=== PATIENT | female | born 1970 | race Caucasian/White ===

== ENCOUNTER → 2016-06-18 | Outpatient (CLI) | payer OTHER | LOC: FIMAGING 14:18 | PROVIDERS: ATTEND Obstetrics & Gynecology | DX: O46.8X1 Other antepartum hemorrhage, first trimester (principal); O99.281 Endocrine, nutritional and metabolic diseases complicating pregnancy, first trimester; O09.521 Supervision of elderly multigravida, first trimester; Z3A.01 Less than 8 weeks gestation of pregnancy; E03.9 Hypothyroidism, unspecified ==

== ENCOUNTER → 2016-06-25 | Outpatient (CLI) | payer OTHER | LOC: FIMAGING 13:39 | PROVIDERS: ATTEND Obstetrics & Gynecology | DX: O09.522 Supervision of elderly multigravida, second trimester (principal); O20.8 Other hemorrhage in early pregnancy; Z3A.21 21 weeks gestation of pregnancy ==

== ENCOUNTER → 2016-06-30 | Outpatient (CLI) | payer OTHER | LOC: FIMAGING 13:42 | PROVIDERS: ATTEND Obstetrics & Gynecology | DX: O09.522 Supervision of elderly multigravida, second trimester (principal); Z3A.21 21 weeks gestation of pregnancy ==

== ENCOUNTER → 2016-08-03 | Outpatient (CLI) | payer OTHER | LOC: FIMAGING 13:43 | PROVIDERS: ATTEND Obstetrics & Gynecology | DX: O36.62X0 Maternal care for excessive fetal growth, second trimester, not applicable or unspecified (principal); O09.812 Supervision of pregnancy resulting from assisted reproductive technology, second trimester; O09.522 Supervision of elderly multigravida, second trimester; Z3A.26 26 weeks gestation of pregnancy ==

== ENCOUNTER → 2016-09-14 | Outpatient (CLI) | payer OTHER | LOC: FIMAGING 13:27 | PROVIDERS: ATTEND Obstetrics & Gynecology | DX: O09.523 Supervision of elderly multigravida, third trimester (principal); O09.813 Supervision of pregnancy resulting from assisted reproductive technology, third trimester; Z3A.32 32 weeks gestation of pregnancy ==

== ENCOUNTER → 2016-10-12 | Outpatient (CLI) | payer OTHER | LOC: FIMAGING 14:08 | PROVIDERS: ATTEND Obstetrics & Gynecology | DX: O09.523 Supervision of elderly multigravida, third trimester (principal); Z3A.36 36 weeks gestation of pregnancy ==

== ENCOUNTER 2016-11-02 03:00 | Inpatient (IN) | payer OTHER ==
[2016-11-02] MEDS ORDERED: OXYTOCIN/RINGERS LACTATE 1,000 ML IV PRN (03:31)
[2016-11-02] MEDS ORDERED: EPSOM SALT 454 GM TP PRN (03:31)
[2016-11-02] MEDS ORDERED: LR 1,000 ML IV PRN (03:31)
[2016-11-02] MEDS ORDERED: OLIVE OIL 118 ML BTL MISC PRN (03:31)
[2016-11-02] MEDS ORDERED: TERBUTALINE SULFATE 1 MG/ML VIAL IV PRN (03:31)
[2016-11-02] MEDS ORDERED: NALOXONE HCL 0.4 MG/ML INJ IVP PRN (04:03)
[2016-11-02] MEDS ORDERED: METOCLOPRAMIDE 10 MG/2 ML VIAL IVP PRN (04:03)
[2016-11-02] MEDS ORDERED: ONDANSETRON 4 MG/2 ML VIAL IVP PRN (04:03)
[2016-11-02] MEDS ORDERED: PHENYLEPHRINE HCL 100 MCG/ML SYR IVP PRN (04:03)
--- NOTE | 2016-11-02 04:03 | PREANESOB ---
Obstetric Pre-Anesthesia Info - General Info : 4 Para: 1 - Info Status: Full Term, Postmature (planned induction for later today) - Labor Status Cervical Dilation per last OB SVE: 4 PIH: No Magnesium Sulfate in Use: No Indications for Labor Analgesia: Pain Control Labor Epidural: Proposed Anesthesia ROS: hypothyroid Allergies/Adverse Reactions: Allergy/AdvReac Type Severity Reaction Status Date / Time No Known Allergies Allergy Verified 08/11/12 17:06 Home Medications: Medication Instructions Recorded [place]-3 Fatty Acids [Fish Oil 1000 8,000 mg PO DAILY 02/29/12 mg (*)] Dha 1 tab PO DAILY 11/02/16 FOLIC ACID 1 tab PO DAILY 11/02/16 1 tab PO DAILY 11/02/16 Synthroid 50 mcg (*) 1 tab PO DAILY 11/02/16 Visit Medications: Generic Name Dose Route Start Last Admin Trade Name Freq PRN Reason Stop Dose Admin Lactated Ringer's 1,000 mls @ 0 mls/hr 11/02/16 03:31 Lr IV 05/01/17 03:30 PRN PRN SEE PROTOCOL CONDITIONS Protocol Per Protocol Oxytocin/Lactated Ringer's 1,000 mls @ 150 mls/hr 11/02/16 03:31 Pitocin 20 Units/Lr (Premix) IV PRN PRN Post- bleeding Ibuprofen 600 mg 11/02/16 03:31 Motrin PO 05/01/17 03:30 Q6HRS PRN post , inflammation Magnesium Sulfate 454 gm 11/02/16 03:31 Epsom Salt TP 05/01/17 03:30 Q1H PRN perineal discomfort F[place] Oil 118 ml 11/02/16 03:31 Sweet Oil MISC 05/01/17 03:30 ONCE PRN preneal massage Terbutaline Sulfate 0.25 mg 11/02/16 03:31 Brethine IV 05/01/17 03:30 ONCE PRN Tachysystole - Anesthesia History Response to Local Anesthetics: Normal Anesthesia & Operative History: No Prior Problems Family Anesthesia History: Negative - Social History Substance Use/Abuse: Denies - Focused Exam Height/Weight (Nursing): Height 170.18 cm Weight 78.471 kg Respiratory: chest non-tender Cardiovascular: normal peripheral pulses ASA Status: II Labs: pending at this time, will wait for results prior to VINH - Plan Consent Signed and on Chart: Yes Patient/Guardian Understands and Agrees to Plan: Yes
[2016-11-02 04:15] LABS: ADD SCAN? ]TNP
[2016-11-02 04:29] LABS: % IMMATURE GRANULYOCYTES 0.7 % (0.0-1.1); ABSOLUTE IMMATURE GRANULOCYTES 0.08 10^3/uL (0.00-0.10); ADD DIFF? NO; ADD MORPH? NO; ADD SCAN? NO; ATYPICAL LYMPHOCYTE FLAG 0 (0-99); FRAGMENT RBC FLAG 0 (0-99); HEMATOCRIT 38.8 % (38.0-47.0); HEMOGLOBIN 13.6 g/dL (12.6-16.3); LEFT SHIFT FLG 0 (0-99); LIPEMIA HEMOLYSIS FLAG 90 (0-99); MEAN CELL HEMOGLOBIN 34.9 pg (27.9-34.1); MEAN CELL HEMOGLOBIN CONCENTR. 35.1 g/dL (32.4-36.7); MEAN CELL VOLUME 99.5 fL (81.5-99.8); MEAN PLATELET VOLUME 11.2 fL (8.7-11.7); PLATELET CLUMPS FLAG 10 (0-99); PLATELET COUNT 194 10^3/uL (150-400); RED CELL DISTRIBUTION WIDTH 12.5 % (11.5-15.2)
[2016-11-02] MEDS ORDERED: fentaNYL 4MCG/ML/BUP 0.0625% R 250 ML EP SCH (04:30)
[2016-11-02] MEDS ORDERED: LR 500 ML IV SCH (04:30)
[2016-11-02] MEDS ORDERED: fentaNYL 2MCG/ML/BUP 0.1% RTU 100 ML EP SCH (04:30)
[2016-11-02] MEDS ORDERED: LIDOCAINE 1% 300 MG/30 ML SDV ONE (04:32)
[2016-11-02] MEDS ORDERED: AMMONIA AROMATIC 1 EACH AMP IH ONE (04:33)
[2016-11-02] MEDS ORDERED: OLIVE OIL 118 ML BTL ONE (04:33)
[2016-11-02] MEDS ORDERED: MISOPROSTOL 200 MCG TAB ONE (04:33)
[2016-11-02] MEDS ORDERED: OXYTOCIN 10 UNIT/ML VIAL ONE (04:33)
[2016-11-02] MEDS ORDERED: TERBUTALINE SULFATE 1 MG/ML VIAL ONE (04:33)
[2016-11-02] MEDS ORDERED: BUPIVACAINE 0.25% 30 ML SDV ONE (04:43)
--- NOTE | 2016-11-02 04:57 | PDGENHP ---
History and Physical - Chief Complaint contractions - History of Present Illness Pt is a 46 y/o female at 39+4 weeks EGA here for labor. No lof/vb and good FM. Pt was scheduled for induction to start this morning. is complicated by AMA, normal preimplantation genetics; IVF with donor egg. She had a large subchorionic hemorrhage, which has resolved. s/p tdap. Blood type AB pos, pap normal, RI, RP NR, urine cx neg, HBVsAg neg, HIV neg, gc/ chl neg, 1hr GTT normal, GBS neg. History Information - Allergies/Home Medication List Allergies/Adverse Reactions: No Known Allergies Allergy (Verified 08/11/12 17:06) Home Medications: [place]-3 Fatty Acids [Fish Oil 1000 mg (*)] 8,000 mg PO DAILY 02/29/12 [Last Taken 11/01/16] Dha 1 tab PO DAILY 11/02/16 [Last Taken 11/01/16] FOLIC ACID 1 tab PO DAILY 11/02/16 [Last Taken 11/01/16] 1 tab PO DAILY 11/02/16 [Last Taken 11/01/16] Synthroid 50 mcg (*) 1 tab PO DAILY 11/02/16 [Last Taken 11/01/16] I have personally reviewed and updated: family history, medical history, social history, surgical history Past Medical History: Episotic tachycardia during running, hiatal hernia - Surgical History Reports: appendectomy - Social History Smoking Status: Never smoked Alcohol Use: None Drug Use: None Review of Systems ROS: 10pt was reviewed & negative except for what was stated in HPI & below Physical Exam Constitutional: no apparent distress, appears nourished, uncomfortable Cardiovascular: regular rate and rhythym Respiratory: clear to auscultation Genitourinary: other (CX 4/80/-2.) Lab Data & Imaging Review 11/02/16 04:17 WBC 10.84 10^3/uL (3.80-9.50) H 11/02/16 04:17 RBC 3.90 10^6/uL (4.18-5.33) L 11/02/16 04:17 Hgb 13.6 g/dL (12.6-16.3) 11/02/16 04:17 Hct 38.8 % (38.0-47.0) 11/02/16 04:17 MCV 99.5 fL (81.5-99.8) 11/02/16 04:17 MCH 34.9 pg (27.9-34.1) H 11/02/16 04:17 MCHC 35.1 g/dL (32.4-36.7) 11/02/16 04:17 RDW 12.5 % (11.5-15.2) 11/02/16 04:17 Plt Count 194 10^3/uL (150-400) 11/02/16 04:17 MPV 11.2 fL (8.7-11.7) 11/02/16 04:17 Neut % (Auto) 76.6 % (39.3-74.2) H 11/02/16 04:17 Lymph % (Auto) 14.3 % (15.0-45.0) L 11/02/16 04:17 Dickson % (Auto) 7.7 % (4.5-13.0) 11/02/16 04:17 Eos % (Auto) 0.3 % (0.6-7.6) L 11/02/16 04:17 Baso % (Auto) 0.4 % (0.3-1.7) 11/02/16 04:17 Nucleat RBC Rel Count 0.0 % (0.0-0.2) 11/02/16 04:17 Absolute Neuts (auto) 8.30 10^3/uL (1.70-6.50) H 11/02/16 04:17 Absolute Lymphs (auto) 1.55 10^3/uL (1.00-3.00) 11/02/16 04:17 Absolute Monos (auto) 0.84 10^3/uL (0.30-0.80) H 11/02/16 04:17 Absolute Eos (auto) 0.03 10^3/uL (0.03-0.40) 11/02/16 04:17 Absolute Basos (auto) 0.04 10^3/uL (0.02-0.10) 11/02/16 04:17 Absolute Nucleated RBC 0.00 10^3/uL (0-0.01) 11/02/16 04:17 Immature Gran % 0.7 % (0.0-1.1) 11/02/16 04:17 Immature Gran # 0.08 10^3/uL (0.00-0.10) 11/02/16 04:17 Patient ABO/Rh AB POSITIVE 11/02/16 03:30 Antibody Screen NEGATIVE 11/02/16 03:30 Assessment & Plan Assessment: Pt is a 46 y/o at 39+4 weeks EGA here in labor Plan: 1) status reassuring 2) Labor - expectant management 3) GBS negative 4) Pain - desires VINH, anesthesia consulted
[2016-11-02] MEDS ORDERED: OXYTOCIN/LR *STANDARD DOSE PROTOCOL IV SCH (07:30)
--- NOTE | 2016-11-02 08:36 | OBPROG ---
OBG Labor Progress Note Assessment/Plan: Assessment: 46 yo @ 39 4/7, admitted for labor Plan: 11/02/16 08:34 FWB reassuring. GBS neg. Expect . Subjective: 46 yo @ 39 4/7, admitted for labor Objective: 11/02/16 04:17 Patient ABO/Rh AB POSITIVE 11/02/16 03:30 VSS - SVE Dilation (cm): 10 Effacement (%): 100 Station: -1 Dilation Complete Date: 11/02/16 Dilation Complete Time: 08:15 Tian FHR (bpm): 140 FHR Pattern Variability: Moderate FHR Category: 2 Membranes: AROM Amniotic Fluid Color: Meconium Stained Oxytocin Orders Assessment - Pre-Induction/Augmentation Assessment Gestational Age: 39 week(s) and 4 day(s) ICD10 Worksheet Patient Problems: Problems Problem Status Onset Labor established Acute Advanced maternal age (AMA), 40 years or greater Acute Supraventricular tachycardia Active
[2016-11-02] MEDS ORDERED: LR 500 ML IV PRN (08:40)
[2016-11-02] MEDS ORDERED: OXYTOCIN/RINGERS LACTATE 500 ML IV SCH (09:00)
[2016-11-02] MEDS ORDERED: AMPICILLIN SODIUM 2 GM/10 ML VIAL ONE (11:35)
[2016-11-02] MEDS ORDERED: NS 100 ML BAG (MINI-BAG) IV ONE (11:39)
[2016-11-02] MEDS ORDERED: GENTAMICIN SULFATE 350 MG in D5W 100 ML IV ONE (12:00)
[2016-11-02] MEDS ORDERED: SIMETHICONE 80 MG TAB CHEW PO PRN (13:03)
[2016-11-02] MEDS ORDERED: HYDROCORTISONE 0.5% CREAM TP PRN (13:03)
[2016-11-02] MEDS ORDERED: HYDROCODONE/APAP 5/325 TAB PO PRN (13:03)
--- NOTE | 2016-11-02 13:06 | OBDEL ---
Info Type: Vaginal GBS+: No Indications for Delivery: Spontaneous Labor Vaginal Delivery - Labor and Delivery Onset of Contractions Date: 11/01/16 Onset of Contractions Time: 23:00 Onset of Contractions Type: Augmented Rupture of Membranes Date: 11/02/16 Rupture of Membranes Time: 08:13 Rupture of Membranes Type: Artificial Amniotic Fluid Color: Meconium Stained Dilation Complete Date: 11/02/16 Dilation Complete Time: 08:15 Placenta Delivery Date: 11/02/16 Non-surgical Procedures: Amniotomy Vaginal Sponge Count Correct: Yes Vaginal Needle Count Correct: Yes Vaginal Sweep Performed: No EBL: 300 ml Delivery Events: Nuchal Cord - Medications Labor Augmentation/Induction Methods Used: Pitocin Labor Augmentation/Induction Indication: Other (Specify) (protraction of labor) ICD10 Worksheet Patient Problems: Problems Problem Status Onset Labor established Acute Supraventricular tachycardia Active Advanced maternal age (AMA), 40 years or greater Acute
--- NOTE | 2016-11-02 13:10 | OBDEL ---
Info GBS+: No Indications for Delivery: Spontaneous Labor Vaginal Delivery - Labor and Delivery Onset of Contractions Date: 11/01/16 Onset of Contractions Time: 23:00 Rupture of Membranes Date: 11/02/16 Rupture of Membranes Time: 08:13 Rupture of Membranes Type: Artificial Amniotic Fluid Color: Meconium Stained Dilation Complete Date: 11/02/16 Dilation Complete Time: 08:15 Non-surgical Procedures: Amniotomy Vaginal Sponge Count Correct: Yes Vaginal Needle Count Correct: Yes EBL: 300 ml Delivery Events: Nuchal Cord Assissted Delivery Assisted Delivery Type: Vacuum Station: +2 Pop offs (Total): 0 Pulls (Total): 4 Assisted Delivery Comment: Fetus was having tachycardia, recurrent variable decels, and patient had developed a fever. Recommended assisted delivery due to concerns of heart rate tracing and to expedite delivery. Patient agreed to the vacuum. Vacuum pulls x 4, patient pushed for 45 minutes after last pull, delivered a viable male . Fetus had a small scalp laceration after the vacuum pulls that increased in size during the subsequent maternal pushing to approximately 1 cm in diameter. [place] Data Tian Delivery Date: 11/02/16 Delivery Time: 12:46 TRACY: 11/05/16 Gestational Age: 39 week(s) and 4 day(s) Sex of Infant: Male [place] Weight (gm): 3798.836 g Score (1 Min): 7 Score (5 Min): 8 ICD10 Worksheet Patient Problems: Problems Problem Status Onset Labor established Acute Supraventricular tachycardia Active Advanced maternal age (AMA), 40 years or greater Acute
--- NOTE | 2016-11-02 13:12 | OBGCSDC ---
General Delivery Information - General Info : 4 Para: 1 Delivery Physician/CNM: Lucille Boston Admission Date: 11/02/16 Labs: Patient ABO/Rh AB POSITIVE 11/02/16 03:30 Hct 38.8 % (38.0-47.0) 11/02/16 04:17 Vaginal - Diagnosis Labor: Augmented Rupture of Membranes Type: Artificial Amniotic Fluid Color: Meconium Stained Delivery Events: Nuchal Cord - Operations/Procedures Assisted Delivery Type: Vacuum Non-surgical Procedures: Amniotomy - Delivery Non-surgical Procedures: Amniotomy EBL: 300 ml Data Tian Delivery Date: 11/02/16 Delivery Time: 12:46 TRACY: 11/05/16 Gestational Age: 39 week(s) and 4 day(s) Sex of : Male Score (1 Min): 7 Score (5 Min): 8
[2016-11-02 13:37] LABS: PH ARTERIAL CORD BLOOD 7.15 (7.10-7.37)
[2016-11-02 13:44] LABS: BASE EXCESS CORD -9.2 mEq/L (-13.6--3.2)
[2016-11-02 13:45] LABS: PH VENOUS CORD BLOOD 7.24 (7.20-7.42)
[2016-11-02] MEDS: IBUPROFEN 600 MG TAB PO PRN ×2 (14:02→20:07)
[2016-11-02] MEDS ORDERED: AMPICILLIN SODIUM 2 GM in NS 100 ML IV SCH (18:00)
[2016-11-02] MEDS: AMPICILLIN SODIUM 2 GM in NS 100 ML IV SCH ×2 (18:16→23:57)
[2016-11-03] MEDS: IBUPROFEN 600 MG TAB PO PRN ×4 (02:14→23:01)
[2016-11-03] MEDS: AMPICILLIN SODIUM 2 GM in NS 100 ML IV SCH (06:06)
--- NOTE | 2016-11-03 07:45 | OBPP ---
Progress Note Assessment/Plan: Assessment: PPD#1 s/p VAVD [place] shortly before delivery: Resolved Recovering appropriately Rh pos, Rub imm Plan: Routine pp care Stop abx Expect home PPD#2 11/03/16 07:46 Subjective: Tired. Baby has latched x 1. No significant bleeding. Feels sore. No fevers/ chills Objective: 11/02/16 04:17 Patient ABO/Rh AB POSITIVE 11/02/16 03:30 Temp Pulse Resp BP Pulse Ox 36.4 C 79 20 103/63 96 11/02/16 20:00 11/02/16 20:00 11/02/16 20:00 11/02/16 20:00 11/02/16 20:00 Gen: NAD Resp: unlabored CV: RRR Breasts: soft Abd: soft, nontender, uterus firm below U Ext: no edema Uterine Position/Fundal Height: Umbilicus -1 Uterine Tone: Firm
[2016-11-03] MEDS: DOCUSATE SODIUM 100 MG CAP PO PRN (08:39)
[2016-11-03 08:57] VITALS: O2SAT 95
[2016-11-04] MEDS: IBUPROFEN 600 MG TAB PO PRN ×2 (06:43→13:49)
[2016-11-04 06:46] VITALS: PULSE 74
--- NOTE | 2016-11-04 08:33 | OBGCSDC ---
General Delivery Information - General Info : 4 Para: 2 Delivery Physician/CNM: Lucille Bosotn Admission Date: 11/01/16 Labs: Patient ABO/Rh AB POSITIVE 11/02/16 03:30 Hct 38.8 % (38.0-47.0) 11/02/16 04:17 Vaginal - Diagnosis Labor: Augmented Presentation at Delivery: Vertex Rupture of Membranes Type: Artificial Amniotic Fluid Color: Meconium Stained Delivery Events: Nuchal Cord - Operations/Procedures Assisted Delivery Type: Vacuum Non-surgical Procedures: Amniotomy L&D Analgesia/Anesthesia Type: Epidural - Delivery Non-surgical Procedures: Amniotomy EBL: 300 ml L&D Analgesia/Anesthesia Type: Epidural Data Tian Delivery Date: 11/02/16 Delivery Time: 12:46 TRACY: 11/05/16 Gestational Age: 39 week(s) and 6 day(s) Sex of : Male Weight (gm): 3798.836 g Score (1 Min): 7 Score (5 Min): 8 Discharge Information - Discharge Information Discharge Medications: Ibuprofen, Oxycodone, Vitamins Condition: Good Instruction/Follow Up: Four Weeks, Six Weeks Discharge Physician/CNM: Irasema Collado
[2016-11-04] MEDS: DOCUSATE SODIUM 100 MG CAP PO PRN (08:57)
[2016-11-04 10:29] VITALS: BP 103/69; RESP 16; TEMP 97.4
== END 2016-11-04 13:55 | disposition home or self-care (01) | DRG 775 ==
LOC: FLD 03:00 → FOB 15:32
PROVIDERS: ADMIT Obstetrics & Gynecology; ATTEND Obstetrics & Gynecology
PROC: 10D07Z6 Extraction of Products of Conception, Vacuum, Via Natural or Artificial Opening (ICD-10-PCS; principal; 2016-11-02)
PROC: 10907ZC Drainage of Amniotic Fluid, Therapeutic from Products of Conception, Via Natural or Artificial Opening (ICD-10-PCS; principal; 2016-11-02)
DX: O76 Abnormality in fetal heart rate and rhythm complicating labor and delivery (principal); O69.82X0 Labor and delivery complicated by other cord entanglement, without compression, not applicable or unspecified; Z37.0 Single live birth; Z3A.39 39 weeks gestation of pregnancy
CPT/HCPCS: J0290; J2370; J2590; J3105

== ENCOUNTER → 2018-09-08 | Outpatient (CLI) | payer OTHER | LOC: FIMAGING 07:59 | PROVIDERS: ATTEND Obstetrics & Gynecology | DX: Z12.31 Encounter for screening mammogram for malignant neoplasm of breast (principal) ==